=== PATIENT | female | born 1970 | race Caucasian/White ===

== ENCOUNTER 2017-05-11 20:01 | Emergency (ER) | payer SELFPAY ==
[~2017-05-11] VITALS: Ht 162.6 cm; Wt 61.2 kg
[2017-05-11] MEDS ORDERED: TRAM50TA PO (20:19)
[2017-05-11] MEDS ORDERED: HYDR-2758 PO (20:19)
--- NOTE | 2017-05-11 20:26 | ED.ADGEN ---
Past History Past Medical History: Kidney Stones, Ovarian Cyst, Other Past Surgical History: Hysterectomy Alcohol Use: None Drug Use: None Adult General Chief Complaint Chief Complaint " I ve had flank pain all day.. like a kidney stone.. I ve had three in the past..." HPI HPI Patient is a 46 year old female who presents with above hx and complaints. Of Lt flank pain she rates as 8 to 9/10 . Pt. started her high in left flank and radiated clear to her groin. Pain now seems to be more localized lower near her hip and pelvic area. Patient denies any trauma. Patient denies any change in bowel habits . Pain seems to be worse when she urinated. Patient is 3 term 3. Last was twins. One did pass away after . There is a family history kidney stones. Patient has had a previous bladder sling operation, tubal ligation and cholecystectomy. Review of Systems Review of Systems Constitutional: Denies fever or chills [] Eyes: Denies change in visual acuity, redness, or eye pain [] HENT: Denies nasal congestion or sore throat [] Respiratory: Denies cough or shortness of breath [] Cardiovascular: No additional information not addressed in HPI [] GI: Complaints of abdominal pain, nausea, complains of left flank pain. Denies vomiting, bloody stools or diarrhea [] : Denies dysuria or hematuria [] Musculoskeletal: Denies back pain or joint pain [] Integument: Denies rash or skin lesions [] Neurologic: Denies headache, focal weakness or sensory changes [] Endocrine: Denies polyuria or polydipsia [] Family History Family History Renal stones Current Medications Current Medications Current Medications Medications (Trade) Dose Ordered Sig/Holley Start Time Stop Time Status Last Admin Dose Admin Famotidine (Pepcid) 20 mg 1X ONCE 05/11/17 21:00 05/11/17 21:01 DC 05/11/17 21:12 20 MG Ketorolac Tromethamine (Toradol) 30 mg 1X ONCE 05/11/17 21:00 05/11/17 21:01 DC 05/11/17 21:11 30 MG Lactated Ringer's 1,000 ml @ 100 mls/hr Q10H 05/11/17 21:00 05/11/17 21:09 DC 05/11/17 21:07 100 MLS/HR Morphine Sulfate (Morphine 10mg Syringe) 10 mg 1X ONCE 05/11/17 21:45 05/11/17 21:46 DC 05/11/17 21:42 10 MG Ondansetron HCl (Zofran) 8 mg 1X ONCE 05/11/17 23:00 05/11/17 23:01 DC 05/11/17 23:10 8 MG Tamsulosin HCl (Flomax) 0.4 mg 1X ONCE 05/11/17 23:00 05/11/17 23:01 DC 05/11/17 23:12 0.4 MG Allergies Allergies Allergies Coded Allergies Type Severity Reaction Last Updated Verified No Known Drug Allergies 05/11/17 No Physical Exam Physical Exam Constitutional: Well developed, well nourished,in acute distress, non-toxic appearance. [] HENT: Normocephalic, atraumatic, bilateral external ears normal, oropharynx moist, no oral exudates, nose normal. [] Eyes: PERRLA, EOMI, conjunctiva normal, no discharge. [] Neck: Normal range of motion, no tenderness, supple, no stridor. [] Cardiovascular:Heart rate regular rhythm, no murmur [] Lungs & Thorax: Bilateral breath sounds clear to auscultation [] Abdomen: Bowel sounds decreased, soft, no tenderness, no masses, no pulsatile masses. Left flank pain on percussion. Old surgical scars Skin: Warm, dry, no erythema, no rash. [] Back: No tenderness, no CVA tenderness. [] Extremities: No tenderness, no cyanosis, no clubbing, ROM intact, no edema. No psoas or obturator sign. Neurologic: Alert and oriented X 3, normal motor function, normal sensory function, no focal deficits noted. [] Psychologic: Affect normal, judgement normal, mood normal. [] Current Patient Data Vital Signs Vital Signs Date Time Temp Pulse Resp B/P (MAP) Pulse Ox O2 Delivery O2 Flow Rate FiO2 05/11/17 23:30 98.3 80 16 133/78 (96) 98 Room Air Lab Results Laboratory Tests Test 05/11/17 20:25 05/11/17 20:31 White Blood Count 9.9 x10^3/uL (4.0-11.0) Red Blood Count 4.63 x10^6/uL (3.50-5.40) Hemoglobin 13.8 g/dL (12.0-15.5) Hematocrit 40.5 % (36.0-47.0) Mean Corpuscular Volume 87 fL (79-100) Mean Corpuscular Hemoglobin 30 pg (25-35) Mean Corpuscular Hemoglobin Concent 34 g/dL (31-37) Red Cell Distribution Width 12.5 % (11.5-14.5) Platelet Count 305 x10^3/uL (140-400) Neutrophils (%) (Auto) 69 % (31-73) Lymphocytes (%) (Auto) 23 % (24-48) L Monocytes (%) (Auto) 6 % (0-9) Eosinophils (%) (Auto) 2 % (0-3) Basophils (%) (Auto) 1 % (0-3) Neutrophils # (Auto) 6.8 x10^3uL (1.8-7.7) Lymphocytes # (Auto) 2.3 x10^3/uL (1.0-4.8) Monocytes # (Auto) 0.6 x10^3/uL (0.0-1.1) Eosinophils # (Auto) 0.2 x10^3/uL (0.0-0.7) Basophils # (Auto) 0.0 x10^3/uL (0.0-0.2) Prothrombin Time 11.0 SEC (9.4-11.4) Prothrombin Time INR 1.1 (0.9-1.1) PTT < 21 SEC (23-33) L Urine Collection Type Unknown Urine Color Yellow Urine Clarity Hazy Urine pH 5.5 Urine Specific Ferris >=1.030 Urine Protein Neg (NEG-TRACE) Urine Glucose (UA) Neg mg/dL (NEG) Urine Ketones (Stick) Neg mg/dL (NEG) Urine Blood Large (NEG) Urine Nitrite Neg (NEG) Urine Bilirubin Neg (NEG) Urine Urobilinogen Dipstick 0.2 mg/dL (0.2 mg/dL) Urine Leukocyte Esterase Neg (NEG) Urine RBC >40 /HPF (0-2) Urine WBC Occ /HPF (0-4) Urine Squamous Epithelial Cells Few /LPF Urine Bacteria Few /HPF (0-FEW) Urine Mucus Mod /LPF Sodium Level 141 mmol/L (136-145) Potassium Level 3.6 mmol/L (3.5-5.1) Chloride Level 103 mmol/L (98-107) Carbon Dioxide Level 28 mmol/L (21-32) Anion Gap 10 (6-14) Blood Urea Nitrogen 18 mg/dL (7-20) Creatinine 1.2 mg/dL (0.6-1.0) H Estimated GFR (Cockcroft-Gault) 48.2 BUN/Creatinine Ratio 15 (6-20) Glucose Level 127 mg/dL (70-99) H Calcium Level 9.5 mg/dL (8.5-10.1) Total Bilirubin 0.2 mg/dL (0.2-1.0) Aspartate Amino Transferase (AST) 12 U/L (15-37) L Alanine Aminotransferase (ALT) 20 U/L (14-59) Alkaline Phosphatase 63 U/L (46-116) Troponin I Quantitative < 0.017 ng/mL (0-0.055) Total Protein 7.8 g/dL (6.4-8.2) Albumin 4.1 g/dL (3.4-5.0) Albumin/Globulin Ratio 1.1 (1.0-1.7) Lipase 100 U/L (73-393) Urine Opiates Screen Pos (NEG) Urine Methadone Screen Neg (NEG) Urine Barbiturates Neg (NEG) Urine Phencyclidine Screen Neg (NEG) Urine Amphetamine/Methamphetamine Neg (NEG) Urine Benzodiazepines Screen Neg (NEG) Urine Cocaine Screen Neg (NEG) Urine Cannabinoids Screen Neg (NEG) Urine Ethyl Alcohol Neg (NEG) Urine Test Negative (NEG) EKG EKG [] Radiology/Procedures Radiology/Procedures My interpretation of abdomen film shows no acute cardiopulmonary findings old surgical clips. Nonspecific bowel gas pattern. CT of abdomen shows a distal left renal stone of approximately 4-5 mm. Near the UVJ. There is mild hydroureter . See formal report when available Course & Med Decision Making Course & Med Decision Making Pertinent Labs and Imaging studies reviewed. (See chart for details). Patient elects to go home. Patient will take Vicoprofen up to 4 times a day for marked pain. We'll take Tylenol or ibuprofen for mild pain. Push fluids. She Will take Flomax daily. Patient to save stone if passed. Patient follow-up urology. Patient return if any concerns. Patient advised she return anytime if needed for pain management. Zofran as needed for nausea and vomiting. [] Final Impression Final Impression 1. Renal colic[] 2. Distal left UVJ renal stone Problems: Dragkathryn Disclaimer Dragon Disclaimer This electronic medical record was generated, in whole or in part, using a voice recognition dictation system. JOANN TATUM MD May 11, 2017 20:26
[2017-05-11] MEDS ORDERED: FAMOTIDINE 20 MG/2 ML VIAL IVP ONE (21:00)
[2017-05-11] MEDS ORDERED: ONDANSETRON PF 4 MG/2 ML VIAL. IV ONE ×2 (21:00→23:00)
[2017-05-11] MEDS ORDERED: KETOROLAC 30 MG/ML VIAL. IV ONE (21:00)
[2017-05-11] MEDS ORDERED: IV RINGERS SOLUTION,LACTATED 1,000 ML IV SCH (21:00)
[2017-05-11 21:01] LABS: BASO % 1 % (0-3); EOS # 0.2 x10^3/uL (0.0-0.7); EOS % 2 % (0-3); HEMATOCRIT 40.5 % (36.0-47.0); HEMOGLOBIN 13.8 g/dL (12.0-15.5); LYMPH # 2.3 x10^3/uL (1.0-4.8); LYMPH % 23 % (24-48); MEAN CORPUSCULAR HEMOGLOBIN 30 pg (25-35); MEAN CORPUSCULAR HGB CONC 34 g/dL (31-37); MEAN CORPUSCULAR VOLUME 87 fL (79-100); MONO # 0.6 x10^3/uL (0.0-1.1); MONO % 6 % (0-9); NEUT # 6.8 x10^3uL (1.8-7.7); NEUT % 69 % (31-73); PLATELET COUNT 305 x10^3/uL (140-400); RED BLOOD COUNT 4.63 x10^6/uL (3.50-5.40); RED CELL DISTRIBUTION WIDTH 12.5 % (11.5-14.5); WHITE BLOOD COUNT 9.9 x10^3/uL (4.0-11.0)
[2017-05-11 21:09] LABS: AMPHETAMINE/METHAMPHETAMINE NEG (NEG); BARBITURATES NEG (NEG); BENZODIAZEPINES NEG (NEG); CANNABINOIDS NEG (NEG); COCAINE NEG (NEG); METHADONE NEG (NEG); OPIATES POS (NEG); PHENCYCLIDINE NEG (NEG)
[2017-05-11 21:12] LABS: ALBUMIN 4.1 g/dL (3.4-5.0); ALBUMIN/GLOBULIN RATIO 1.1 (1.0-1.7); CALCIUM 9.5 mg/dL (8.5-10.1); CREATININE 1.2 mg/dL (0.6-1.0); GFR 48.2; POTASSIUM 3.6 mmol/L (3.5-5.1); TOTAL BILIRUBIN 0.2 mg/dL (0.2-1.0); TOTAL PROTEIN 7.8 g/dL (6.4-8.2)
[2017-05-11 21:30] LABS: BACTERIA,URINE FEW /HPF (0-FEW); BILIRUBIN,URINE NEG (NEG); CLARITY,URINE HAZY; COLOR,URINE YELLOW; GLUCOSE,URINE NEG (NEG); NITRITE,URINE NEG (NEG); RBC,URINE >40 /HPF (0-2); SQUAMOUS EPITHELIAL CELL,UR FEW /LPF; UROBILINOGEN,URINE 0.2 mg/dL (0.2 mg/dL); WBC,URINE OCC /HPF (0-4)
[2017-05-11 21:34] LABS: U PREG PATIENT NEGATIVE (NEG)
[2017-05-11] MEDS ORDERED: MORPHINE SULFATE 10 MG/ML SYRINGE. SQ ONE (21:45)
--- NOTE | 2017-05-11 22:35 | RAD ---
CT scan of the abdomen and pelvis without contrast 05/11/2017 CLINICAL HISTORY: Severe left flank pain with nausea and vomiting. TECHNIQUE: Unenhanced, contiguous, 3 mm axial sections were obtained through abdomen and pelvis. One or more of the following individualized dose reduction techniques were utilized for this study: 1. Automated exposure control. 2. Adjustment of the mA and/or kV according to patient size. 3. Use of iterative reconstruction technique. FINDINGS: Images through the lung bases demonstrate minimal dependent subsegmental atelectasis bilaterally. The liver, spleen, pancreas, and adrenal glands are within normal limits. Multiple nonobstructing calculi are seen scattered throughout both kidneys. These measure 1 mm to 4 mm in size. Patchy areas of increased attenuation are seen involving the medullary portions of both kidneys. 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 There is no evidence of obstruction of the right collecting system. Mild to moderate dilatation of the left intrarenal collecting system is seen. The left ureter is mild to moderately dilated. The ureter is dilated to the level of the left UVJ. Within the left UVJ a 5 mm distal left ureteral calculus is seen. This is causing mild to moderate obstruction of the left collecting system. The abdominal aorta tapers normally. The gallbladder is contracted. No free fluid or free air is seen within the abdomen. There is no evidence of bowel obstruction. The appendix is partially visualized and is within normal limits. Images through the pelvis demonstrate the urinary bladder to be contracted. No free fluid is seen. The osseous structures are grossly intact. IMPRESSION: 5 mm distal left ureteral calculus is seen at the left UVJ which is causing mild to moderate obstruction of the left collecting system. Electronically signed by: Armando Irizarry MD (05/11/2017 10:32 PM) [facility]
[2017-05-11] MEDS ORDERED: TAMSULOSIN 0.4 MG CAP.ER.24H. PO ONE (23:00)
[2017-05-11] MEDS ORDERED: ONDA8TAB12 PO (23:03)
[2017-05-11] MEDS ORDERED: HYDR-79 PO (23:03)
[2017-05-11] MEDS ORDERED: TAMS0.4C97 PO (23:03)
[2017-05-11 23:30] VITALS: BP 133/78
--- NOTE | 2017-05-12 08:44 | RAD ---
Acute abdominal series with single view chest 05/11/2017 Indication: Severe left flank pain with nausea and vomiting. History of left kidney stone. Comparison: CT abdomen/pelvis 05/11/2017 Technique: Frontal view of the chest, upright view of the abdomen and supine view the abdomen are provided. Findings: The cardiomediastinal silhouette is within normal limits. There are no pleural effusions. There is no pulmonary vascular congestion. There is no pneumothorax. Lungs are clear. Bilateral cervical ribs are identified. There is no free intraperitoneal air. Renal calculus present on the comparison CT within the midpole the right kidney is not resolved on this radiograph. The 5 mm distal left ureteral calculus, identified at the ureterovesicular junction on comparison CT, is noted in the left hemipelvis on the supine radiograph. There are no dilated loops of small or large bowel. Surgical clips are identified in the right hemipelvis. Impression: 1. No acute cardiopulmonary process. 2. There is a 5 mm calculus in the left hemipelvis which corresponds with a left ureteropelvic junction calculus identified on recent CT. 3. Bilateral cervical ribs are present. 4. Nonobstructive bowel gas pattern.
== END 2017-05-11 23:30 | disposition home or self-care (01) ==
LOC: ER 20:01
DX: N20.2 Calculus of kidney with calculus of ureter (principal); Z87.442 Personal history of urinary calculi; Z90.710 Acquired absence of both cervix and uterus
CPT/HCPCS: 36415; 74022; 74176; 80053; 80307; 81001; 81025; 83690; 84484; 85025; 85610; 85730; 96361; 96372; 96374; 96375; 96376; 99285; J1885; J2270; J2405; J7120; S0028; G0479